=== PATIENT | male | born 1980 | race African-American/Black ===

== ENCOUNTER 2021-07-24 16:03 | Emergency (ER) | payer SELFPAY ==
--- OUTSIDE RECORDS SUMMARY | 2021-07-24 16:08 | XMS REPORT | Continuity of Care Document ---
:1980 Author Organization [facility] t Address [address] [place] [address] [place] [id number] Care Team Providers Name Role Phone Unavailable Unavailable Unavailable Problems This patient has no known problems. Allergies, Adverse Reactions, Alerts This patient has no known allergies or adverse reactions. Medications This patient has no known medications. Procedures This patient has no known procedures. Results This patient has no known results.
--- NOTE | 2021-07-24 17:04 | EDPHYS ---
Physician Documentation [facility] Name: Mirella Villalba Age: 40 yrs Sex: Male : 1980 Arrival Date: 07/24/2021 Time: 16:08 Bed DX1 Private MD: ED Physician Best Waters HPI: 07/24 17:00 This 40 yrs old Black Male presents to ER via Ambulatory with complaints of Sore Throat.pm1 17:00 The patient presents with sore throat. The patient describes throat pain as scratchy. pm1 Onset: The symptoms/episode began/occurred 4 day(s) ago. Severity of symptoms: in the emergency department the symptoms are unchanged. Modifying factors: The symptoms are alleviated by Benadryl at home has helped the symptoms are aggravated by swallowing, Patient's oral intake status: good. Associated signs and symptoms: The patient has no apparent associated signs or symptoms, Pertinent negatives chest pain, cough, fever, shortness of breath. The patient has experienced similar episodes in the past, a few times. The patient has not recently seen a physician. Patient with an allergy for shrimp. Patient was at work and decided to eat some shrimp, and his sore throat has been present since then. He has taken Benadryl at home which has helped. Historical: - Allergies: 16:43 SHELLFISH; iw 16:43 Iodine; iw - Home Meds: 16:43 None [Active]; iw - PMHx: 16:43 None; iw - PSHx: 16:43 None; iw - Immunization history:: Client reports having NOT received the Covid vaccine. - Social history:: Smoking status: . ROS: 17:00 Constitutional: Negative for fever, chills, and weight loss. pm1 17:00 Cardiovascular: Negative for chest pain, palpitations, and edema, Respiratory: Negative for shortness of breath, cough, wheezing, and pleuritic chest pain, Abdomen/GI: Negative for abdominal pain, nausea, vomiting, diarrhea, and constipation, MS/Extremity: Negative for injury and deformity, Skin: Negative for injury, rash, and discoloration, Neuro: Negative for headache, weakness, numbness, tingling, and seizure. 17:00 ENT: Positive for sore throat, Negative for Teeth pain 17:00 All other systems are negative. Exam: 17:00 Constitutional: This is a well developed, well nourished patient who is awake, alert, pm1 and in no acute distress. Head/Face: Normocephalic, atraumatic. 17:00 Back: No spinal tenderness. No costovertebral tenderness. Full range of motion. Skin: Warm, dry with normal turgor. Normal color with no rashes, no lesions, and no evidence of cellulitis. MS/ Extremity: Pulses equal, no cyanosis. Neurovascular intact. Full, normal range of motion. 17:00 ENT: Posterior pharynx: Airway: no evidence of obstruction, Tonsils: bilaterally enlarged, with erythema, no exudate, no ulcerations, Dental exam: no acute changes, Voice: no acute changes. 17:00 Cardiovascular: Rate: normal, Rhythm: regular, Pulses: no pulse deficits are appreciated. 17:00 Respiratory: Exam negative for acute changes, respiratory distress, shortness of breath. 17:00 Abdomen/GI: Exam negative for acute changes, Inspection: abdomen appears normal, Palpation: abdomen is soft and non-tender. 17:00 Neuro: Exam negative for acute changes, Orientation: is normal, Mentation: is normal, Motor: is normal, moves all fours. Vital Signs: 16:41 BP 125 / 89; Pulse 70; Resp 16; Temp 98.6; Pulse Ox 100% on R/A; Weight 77.11 kg; iw Height 6 ft. 1 in. (185.42 cm); 16:41 Body Mass Index 22.43 (77.11 kg, 185.42 cm) iw MDM: 16:56 Patient medically screened. [facility] 17:02 Data reviewed: vital signs. Data interpreted: Pulse oximetry: on room air is 100 %. pm1 Interpretation: normal. Counseling: I had a detailed discussion with the patient and/or guardian regarding: the historical points, exam findings, and any diagnostic results supporting the discharge/admit diagnosis, the need for outpatient follow up, a family practitioner, to return to the emergency department if symptoms worsen or persist or if there are any questions or concerns that arise at home. Administered Medications: 17:27 Drug: Pepcid (famotidine) 20 mg Route: PO; iw 17:27 Drug: Benadryl (diphenhydrAMINE) 25 mg Route: PO; iw 17:27 Drug: Decadron (dexamethasone) 10 mg Route: IM; Site: right gluteus; iw Disposition: 07/25 08:33 Co-signature as Attending Physician, Best Waters MD I agree with the assessment and helena plan of care. 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 pm1 - Acute pharyngitis, unspecified pm1 Followup: pm1 - With: Emergency Department - When: As needed - Reason: Worsening of condition Followup: pm1 - With: Private Physician - When: 2 - 3 days - Reason: Recheck today's complaints, Continuance of care, Re-evaluation by your physician Discharge Instructions: - Discharge Summary Sheet pm1 - Food Allergy pm1 - Pharyngitis pm1 - Seafood Allergy pm1 Forms: - Medication Reconciliation Form pm1 - Thank You Letter pm1 - Antibiotic Education pm1 - Prescription Opioid Use pm1 - Work release form iw Prescriptions: - Benadryl 25 mg Oral Capsule - take 1 capsule by ORAL route every 6 hours As needed; 30 tablet; Refills: 0, pm1 Product Selection Permitted - Pepcid 20 mg Oral Tablet - take 1 tablet by ORAL route every 12 hours for 10 days; 20 tablet; Refills: 0, pm1 Product Selection Permitted - Prednisone 20 mg Oral Tablet - take 3 tablets by ORAL route once daily for 5 days; 15 tablet; Refills: 0, pm1 Product Selection Permitted Signatures: Best Waters MD MD cha Williams, Irene, ANIL RN iw Marquise Lawler, PETEY DOUGH MOLDER pm1
--- NOTE | 2021-07-24 17:04 | ER ---
Nurse's Notes [facility] Name: Mirella Villalba Age: 40 yrs Sex: Male : 1980 Arrival Date: 07/24/2021 Time: 16:08 Bed DX1 Private MD: Diagnosis: Allergy to seafood-Shrimp;Acute pharyngitis, unspecified Presentation: 07/24 16:41 Chief complaint: Patient states: top and bottom gums on right side fel irritated , iw think s he at something that irritated it. Coronavirus screen: At this time, the client does not indicate any symptoms associated with coronavirus-19. Ebola Screen: Patient negative for fever greater than or equal to 101.5 degrees Fahrenheit, and additional compatible Ebola Virus Disease symptoms Patient denies exposure to infectious person. Patient denies travel to an Ebola-affected area in the 21 days before illness onset. No symptoms or risks identified at this time. Initial Sepsis Screen: Does the patient meet any 2 criteria? No. Patient's initial sepsis screen is negative. Does the patient have a suspected source of infection? No. Patient's initial sepsis screen is negative. Risk Assessment: Do you want to hurt yourself or someone else? Patient reports no desire to harm self or others. Onset of symptoms was July 22, 2021. 16:41 Method Of Arrival: Ambulatory iw 16:41 Acuity: KELSIE 4 iw 16:45 Chief complaint: TONSILS SWOLLEN ON RIGHT. iw Historical: - Allergies: 16:43 SHELLFISH; iw 16:43 Iodine; iw - Home Meds: 16:43 None [Active]; iw - PMHx: 16:43 None; iw - PSHx: 16:43 None; iw - Immunization history:: Client reports having NOT received the Covid vaccine. - Social history:: Smoking status: . Vital Signs: 16:41 BP 125 / 89; Pulse 70; Resp 16; Temp 98.6; Pulse Ox 100% on R/A; Weight 77.11 kg; iw Height 6 ft. 1 in. (185.42 cm); 16:41 Body Mass Index 22.43 (77.11 kg, 185.42 cm) iw ED Course: 16:08 Patient arrived in ED. mr 16:43 Triage completed. iw 16:45 Ivett Roldan, RN is Primary Nurse. iw 16:55 Marquise Lawler NP is PHCP. pm1 16:55 Best Waters MD is Attending Physician. pm1 Administered Medications: 17:27 Drug: Pepcid (famotidine) 20 mg Route: PO; iw 17:27 Drug: Benadryl (diphenhydrAMINE) 25 mg Route: PO; iw 17:27 Drug: Decadron (dexamethasone) 10 mg Route: IM; Site: right gluteus; iw Outcome: 17:04 Discharge ordered by . pm1 17:36 Patient left the ED. iw Signatures: Rosana David Irene, RN RN iw Marquise Lawler NP SLOT MANAGER pm1
[2021-07-24 17:40] VITALS: BP 125/89; TEMP 98.6; O2SAT 100
[2021-07-24] MEDS ORDERED: FAMOTIDINE 20 MG TAB ONE (17:43)
[2021-07-24] MEDS ORDERED: dexAMETHasone 10 MG/ML VIAL ONE (17:43)
[2021-07-24] MEDS ORDERED: DIPHENHYDRAMINE 25 MG TAB/CAP ONE (17:43)
== END 2021-07-24 17:36 | disposition home or self-care (01) ==
LOC: ER 16:03
DX: J02.9 Acute pharyngitis, unspecified (principal); Z91.013 Allergy to seafood; Z91.048 Other nonmedicinal substance allergy status
CPT/HCPCS: 96372; 99282; J1100